=== PATIENT | female | born 1975 | race Asian ===

== ENCOUNTER 2024-03-21 16:37 | Emergency (ER) | payer OTHER, SELFPAY ==
[2024-03-21 17:33] VITALS: BP 108/72; PULSE 80; RESP 18; TEMP 37; O2SAT 99; BMI 23.8
--- NOTE | 2024-03-21 18:21 | CRLHL7_ITS ---
For Patients: As a result of the Century Cures Act, medical imaging exams and procedure reports are released immediately into your electronic medical record. You may view this report before your referring provider. If you have questions, please contact your health care provider. Indication: Pelvic pain for 1 week. Technique: Real-time sonographic images of the pelvis were obtained transabdominally and transvaginally utilizing grayscale, color, and Doppler imaging. Comparison: None. Findings: Uterus: Appearance: Normal. Position: Anteverted. Size: 9.4 x 4.3 x 4.8 cm. Endometrial stripe: 10 mm. Suspected 1.2 x 0.7 x 0.9 centimeter endometrial polyp. Right ovary: Size: 2.8 x 1.6 x 2.1 cm. Appearance: Normal morphology. No masses. Preserved blood flow. Dominant follicle measuring 1.9 x 1.2 x 1.5 cm. Left ovary: Size: 2.3 x 1.4 x 2.4 cm. Appearance: Normal morphology. No masses. Preserved blood flow. Dominant follicle measuring 1.0 x 0.7 x 0.9 centimeter. Free fluid: None. Impression: 1. Suspected 1.2 x 0.7 x 0.9 centimeter endometrial polyp. 2. Normal sonographic appearance of the bilateral ovaries. Dictated by Rogelio Wong MD @ 03/21/2024 8:30:36 PM (Electronically Signed)
[2024-03-21 18:23] LABS: Appearance Urine Clear (Clear); Bilirubin Urine Negative (Negative); Blood Urine Trace-intact (Negative); Color Urine Yellow (Yellow); Glucose Urine Negative (Negative); Ketones Urine Negative (Negative); Leukocyte Esterase Urine Negative (Negative); Nitrite Urine Negative (Negative); Protein Urine Negative (Negative); Specific Gravity Urine 1.025 (1.000-1.030); Urobilinogen Urine 0.2 (0.2-1.0)
[2024-03-21 18:36] LABS: Basophils Absolute Auto 0.04 K/uL (0.00-0.30); Basophils Percent Auto 0.6 % (0.0-3.0); Eosinophils Absolute Auto 0.11 K/uL (0.00-0.50); Eosinophils Percent Auto 1.7 % (0.0-7.0); Hematocrit 41.3 % (33.0-51.0); Hemoglobin* 13.9 gm/dL (12.0-16.0); Lymphocytes Percent Auto 34.8 % (20-44); Mean Corpuscular HGB Conc 34 gm/dL (32-36); Mean Corpuscular Hemoglobin 29 pg (26-34); Mean Corpuscular Volume 87 fL (80-100); Monocytes Percent Auto 6.6 % (0.0-11.0); Neutrophils Absolute Auto 3.56 K/uL (1.7-7.0); Neutrophils Percent Auto 56.3 % (42.0-72.0); Platelet Count* 228 K/uL (140-440); RDW Coefficient of Variation % 12.3 % (11.5-15.5); Red Blood Count 4.76 m/uL (4.00-5.20); White Blood Count* 6.33 K/uL (4.50-11.00)
[2024-03-21 18:38] LABS: Slide Review Reflex No
[2024-03-21 18:49] LABS: Albumin* 4.4 g/dL (3.3-5.0); Chloride* 103 mmol/L (96-114)
[2024-03-21 18:49] LABS: Ur HCG Qualitative* Negative (Negative)
[2024-03-21 18:50] LABS: Potassium* 4.1 mmol/L (3.6-5.1); Sodium* 136 mmol/L (135-149)
[2024-03-21 18:52] LABS: Creatinine* 0.7 mg/dL (0.5-1.5); Est. Creatinine Clearance* 74.97; Estimated Glomerular Filt Rate 107 ml/min
[2024-03-21 18:53] LABS: Alanine Aminotransferase* 91 U/L (4-35); Alkaline Phosphatase* 60 U/L (40-150); Anion Gap 7 mEq/L (7-15); Aspartate Amino Transferase* 32 U/L (12-35); Bilirubin Direct* 0.1 mg/dL (0.0-0.5); Bilirubin Total* 0.3 mg/dL (0.1-1.5); Blood Urea Nitrogen* 16 mg/dL (5-24); Calcium* 9.1 mg/dL (8.4-10.6); Carbon Dioxide* 26 mmol/L (20-32); Glucose* 95 mg/dL (60-115); Total Protein* 7.4 g/dL (6.0-8.3)
[2024-03-21 19:00] LABS: C Reactive Protein* < 0.5 mg/dL (0.5-1.0)
--- NOTE | 2024-03-21 19:19 | ED.GENADULT ---
HPI - General Adult General Date Seen: 03/21/24 Chief complaint: Abdominal Pain Stated complaint: abdominal pain Time Seen by Provider: 03/21/24 18:09 Source: patient and hazardous materials analyst History of Present Illness HPI narrative: Patient is a 48-year-old [place] woman here with her for evaluation of lower abdominal pain. She speaks some [place] Islander but history is obtained with the assistance of a [employer] hazardous materials analyst. She notes lower pelvic pain for about a week. She says that this feels better when she lays down, but when she stands up or sits on a hard chair the pain is worse. She has had a little bit of nausea, she has not had any vomiting and appetite has otherwise been okay. No fevers, no urinary symptoms, no vaginal bleeding. She is actively trying to get , her last period was February 20 but a test a couple of days ago was negative. It does not sound as if she has ever had a prior , there was mention of something in the nursing note but it sounds as if she had an episode similar to this with lower abdominal pain after a long drive, then got her period and thought maybe it was a loss. She did not have a positive test at that time however. She denies abdominal surgeries or significant other medical history. She has not taken anything for pain. Related Data Home Medications ?Medication ?Instructions ?Recorded ?Confirmed calcium PO DAILY 03/21/24 coQ10 PO DAILY 03/21/24 folic acid 1 mg tablet 1 mg PO DAILY 03/21/24 03/21/24 Allergies Allergy/AdvReac Type Severity Reaction Status Date / Time alcohol Allergy Mild itchy, Verified 03/21/24 17:56 skin bubbling/hives caffeine Allergy Mild hives, Verified 03/21/24 17:56 itchy Penicillins Allergy rash, itchy Verified 03/21/24 17:56 Review of Systems Status of ROS: Reports: 10 or more systems reviewed and unremarkable except as noted in History and below PFSH PFS Social History Smoking Status: Never smoker How often do you have a drink containing alcohol: never AUDIT-C Alcohol total score: 0 Non-prescribed substance use: denies use Exam Narrative: Exam Narrative: Vital signs reviewed In general, alert, nontoxic Head: Normocephalic, atraumatic. Eyes: Sclera clear. Pupils equal and reactive. ENT: Mucous membranes moist. Neck: Supple without adenopathy. Heart: Regular rate and rhythm without murmur. Lungs: Clear. No increased work of breathing, crackles or wheezes. Abdomen: Soft, nontender to palpation. Extremities: Well perfused, pulses intact. No significant edema. Neurologic: Alert, conversant. Speech fluent, face symmetric. Moves all extremities equally. Skin: Warm, dry well perfused. Affect: Normal. Const: Vital Signs, click to edit/add: Vital Signs - 24 hr 03/21/24 17:33 03/21/24 19:53 Temperature 98.6 F Pulse Rate [Pulse Oximeter] 80 78 Respiratory Rate 18 16 Blood Pressure [Ri ght Upper Arm] 108/72 96/62 Pulse Oximetry 99 98 Oxygen Delivery Me thod Room Air Documenting provider has reviewed patient's vital signs: yes Course Course ED Course: Abdominal exam is fairly benign. Given symptoms for 1 week without significant worsening, my suspicion for a surgical process such as appendicitis, ovarian torsion, tubo-ovarian abscess, ectopic , diverticulitis is rather low. I did do basic labs, her white blood cell count is reassuringly normal at 6.3 with a normal diff. Hemoglobin is normal. Metabolic panel is normal, LFTs are notable for an ALT of 91 otherwise normal. Her CRP is less than 0.5. Urinalysis shows 0-2 red cells and 0-2 white cells. test here is confirmed as negative. She went on to have a pelvic ultrasound. I reviewed these images, she has some small ovarian cyst but no large cysts, no free fluid. There is a structure in the uterus which the tech felt was likely a polyp. Final radiology read pending at this time. Final radiology read reviewed, they do feel this is a small polyp, she has follicular cysts but normal appearing ovaries with good flow. With normal labs and benign exam after a week of symptoms, I do not think CT scan is needed at this time. This may represent awaiting premenstrual cramping as the last time she had something like this she started her period. For now, I think it is reasonable to let her go home, she can use ibuprofen or Tylenol if needed. Would recommend primary care follow-up if not improving over the next couple of days. Return any time for severe uncontrolled pain, fevers, vomiting, or other new symptoms. Vital Signs Vital signs: Initial Vital Signs Temperature 98.6 F 03/21/24 17:33 Temperature Source Temporal Artery Scan 03/21/24 17:33 Pulse Rate 80 03/21/24 17:33 Respiratory Rate 18 03/21/24 17:33 Blood Pressure 108/72 03/21/24 17:33 Blood Pressure Mean 84 03/21/24 17:33 Blood Pressure Position Sitting 03/21/24 17:33 Pulse Oximetry 99 03/21/24 17:33 Oxygen Delivery Method Room Air 03/21/24 17:33 Vital Signs Temperature 98.6 F 03/21/24 17:33 Pulse Rate 80 03/21/24 17:33 Respiratory Rate 18 03/21/24 17:33 Blood Pressure 108/72 03/21/24 17:33 Pulse Oximetry 99 03/21/24 17:33 Oxygen Delivery Method Room Air 03/21/24 17:33 Temperature 98.6 F 03/21/24 17:33 Pulse Rate 78 03/21/24 19:53 Respiratory Rate 16 03/21/24 19:53 Blood Pressure 96/62 03/21/24 19:53 Pulse Oximetry 98 03/21/24 19:53 Oxygen Delivery Method Room Air 03/21/24 17:33 Medical Decision Making Lab Data Labs: Lab Results 03/21/24 03/21/24 Range/Units 18:00 18:32 WBC 6.33 (4.50-11.00) K/uL RBC 4.76 (4.00-5.20) m/uL Hgb 13.9 (12.0-16.0) gm/dL Hct 41.3 (33.0-51.0) % MCV 87 (80-100) fL MCH 29 (26-34) pg MCHC 34 (32-36) gm/dL RDW Coeff of Jagdeep 12.3 (11.5-15.5) % Plt Count 228 (140-440) K/uL Neut % (Auto) 56.3 (42.0-72.0) % Lymph % (Auto) 34.8 (20-44) % [place] % (Auto) 6.6 (0.0-11.0) % Eos % (Auto) 1.7 (0.0-7.0) % Baso % (Auto) 0.6 (0.0-3.0) % Neut # (Auto) 3.56 (1.7-7.0) K/uL Lymph # (Auto) 2.20 (0.90-2.90) K/uL [place] # (Auto) 0.40 (0.00-0.90) K/UL Eos # (Auto) 0.11 (0.00-0.50) K/uL Baso # (Auto) 0.04 (0.00-0.30) K/uL Abs Immat Gran (auto) 0.00 (0.00-0.30) K/uL Imm/Tot Granulo (auto) 0.0 % Sodium 136 (135-149) mmol/L Potassium 4.1 (3.6-5.1) mmol/L Chloride 103 (96-114) mmol/L Carbon Dioxide 26 (20-32) mmol/L Anion Gap 7 (7-15) mEq/L BUN 16 (5-24) mg/dL Creatinine 0.7 (0.5-1.5) mg/dL Estimated Creat Clear 74.97 Estimated GFR 107 ml/min Glucose 95 (60-115) mg/dL Calcium 9.1 (8.4-10.6) mg/dL Total Bilirubin 0.3 (0.1-1.5) mg/dL Direct Bilirubin 0.1 (0.0-0.5) mg/dL AST 32 (12-35) U/L ALT 91 H (4-35) U/L Alkaline Phosphatase 60 (40-150) U/L C-Reactive Protein < 0.5 L (0.5-1.0) mg/dL Total Protein 7.4 (6.0-8.3) g/dL Albumin 4.4 (3.3-5.0) g/dL Urine Color Yellow (Yellow) Urine Appearance Clear (Clear) Urine pH 6.0 (5.0-8.5) Ur Specific [place] 1.025 (1.000-1.030) Urine Protein Negative (Negative) Urine Glucose (UA) Negative (Negative) Urine Ketones Negative (Negative) Urine Blood Trace-intact A (Negative) Urine Nitrite Negative (Negative) Urine Bilirubin Negative (Negative) Urine Urobilinogen 0.2 (0.2-1.0) Ur Leukocyte Esterase Negative (Negative) Urine RBC 0-2 (0-2) Urine WBC 0-2 (0-5) Ur Squamous Epith Cells Few (None-Few) Urine Bacteria None (None) Urine HCG, Qual Negative (Negative) Imaging Data Pelvic ultrasound: Attestation: I have reviewed the pertinent imaging results. Radiologist's impression: Patient: RADHA BLANKENSHIP Facility: [facility] RIS Site . Site : [id number] Study: US-Pelvis Transabdominal and Transvaginal-03/21/2024 7:47:42 PM Ordering Physician: Sonny Mendiola Final Report: Indication: Pelvic pain for 1 week. Technique: Real-time sonographic images of the pelvis were obtained transabdominally and transvaginally utilizing grayscale, color, and Doppler imaging. Comparison: None. Findings: Uterus: Appearance: Normal. Position: Anteverted. Size: 9.4 x 4.3 x 4.8 cm. Endometrial stripe: 10 mm. Suspected 1.2 x 0.7 x 0.9 centimeter endometrial polyp. Right ovary: Size: 2.8 x 1.6 x 2.1 cm. Appearance: Normal morphology. No masses. Preserved blood flow. Dominant follicle measuring 1.9 x 1.2 x 1.5 cm. Left ovary: Size: 2.3 x 1.4 x 2.4 cm. Appearance: Normal morphology. No masses. Preserved blood flow. Dominant follicle measuring 1.0 x 0.7 x 0.9 centimeter. Free fluid: None. Impression: 1. Suspected 1.2 x 0.7 x 0.9 centimeter endometrial polyp. 2. Normal sonographic appearance of the bilateral ovaries. Dictated by Rogelio Wong MD @ 03/21/2024 8:30:36 PM Discharge Plan Discharge Clinical Impression: Pelvic pain Patient Disposition: Home, Self-Care Instructions: Pelvic Pain in Women (ED) Additional Instructions: Your test today do not show an obvious cause for your symptoms. There is no evidence of urinary tract infection, your test is negative. Your ultrasound shows your ovaries are normal and have good blood flow. You do have a small polyp in your uterus, this is unlikely to be causing symptoms however. For now, I would use ibuprofen or Tylenol if needed. See your regular doctor if not improving over the next couple of days and return to the emergency department at any time if pain becomes more severe or localized, or you have new symptoms such as fevers, vomiting, or other worsening. Prescriptions: No Action calcium PO DAILY folic acid 1 mg tablet 1 mg PO DAILY coQ10 PO DAILY Follow Up/Referrals: Provider,Not a Local [Primary Care Provider] - Stand Alone Forms: [employer] Info Instructions
[2024-03-21 19:53] VITALS: BP 96/62; PULSE 78; RESP 16; O2SAT 98
[2024-03-21 20:01] LABS: RBC Urine 0-2 (0-2); Squamous Epithelial Cell Urine Few (None-Few); WBC Urine 0-2 (0-5)
== END 2024-03-21 20:58 | disposition home or self-care (01) ==
PROVIDERS: Emergency Provider Emergency Medicine
DX: R10.2 Pelvic and perineal pain (principal)
CPT/HCPCS: 36415; 76830; 76856; 80048; 80076; 81001; 81003; 81025; 85025; 86140; 93976; 99283; 99284

== ENCOUNTER 2024-08-24 14:11 | Outpatient (CLI) | payer OTHER, SELFPAY | END 2024-08-24 14:12 | disposition home or self-care (01) | PROVIDERS: Visit Provider Physician Assistant Surgical | DX: N89.8 Other specified noninflammatory disorders of vagina (principal); L20.84 Intrinsic (allergic) eczema; J30.9 Allergic rhinitis, unspecified | CPT/HCPCS: 87086 ==